=== PATIENT | female | born 1980 | race Caucasian/White ===

== ENCOUNTER 2025-06-07 00:17 | Emergency (ER) | payer SELFPAY ==
[~2025-06-07] VITALS: Ht 167.6 cm; Wt 125.0 kg
[2025-06-07 02:28] LABS: CREATININE 0.79 MG/DL (0.40-0.90); MEAN PLATELET VOLUME 6.9 FL (7.4-10.4); RED CELL DISTRIBUTION WIDTH 13.5 % (11.5-14.5); TOTAL CARBON DIOXIDE 27.7 MMOL/L (24-32); eCRCL 83 ML/MIN; eGFR 78 ML/MIN
[2025-06-07 02:38] LABS: URINE HCG NEGATIVE (NEG)
[2025-06-07 02:43] LABS: LEUKOCYTE ESTERASE ,URINE SMALL (Neg); NITRITES, URINE NEGATIVE (Neg); OCCULT BLOOD,URINE LARGE (Neg)
[2025-06-07 02:53] LABS: UA COLLECTION TYPE CLN CATCH MIDSTREAM
[2025-06-07 02:55] LABS: MUCUS STRANDS FEW /LPF (Neg); SQUAMOUS EPITHELIAL CELL,UR MODERATE /LPF (FEW)
--- NOTE | 2025-06-07 04:27 | Physician Documentation ---
History of Present Illness Chief Complaint: Flank Pain Stated Complaint: ABD PAIN Time Seen by MD: 04:25 OK to notify your PCP?: Yes Source: patient, family, RN/MD, RN notes reviewed, old records Mode of Arrival: POV Exam Limitations: no limitations HPI This pleasant 45-year-old female comes in with four days of urinary complaints mostly frequency pain feels like contractions at one point in time her urine was orange but that is seems to have improved. Patient has had some fevers and chills partner states she felt very hot. The patient vomited earlier has been feeling well. Denies any CVA tenderness. She is rocking uncomfortable but otherwise doing relatively well Medication Reconciliation Allergies: Coded Allergies: No Known Allergies (Unverified , 06/07/25) Scheduled Cephalexin*Monohydrate* (Keflex*), 1 TAB PO BID Phenazopyridine Hcl (Pyridium tablet), 1 TAB PO Q8H Past Medical History Past Medical History: Hypertension, UTI Past Surgical History: other (Kidney ureter surgery) Smoking Status: Current every day smoker Alcohol Use: Occasionally Drug Use: none Review of Systems All Other Systems at this time: Reviewed and Negative Physical Exam Vital Signs: RN Vital Signs have been reviewed: Yes, Temperature: 99.2, Source: Oral, Heart Rate: 108, Respiratory Rate: 16, BP: 179/104, Pulse Oximetry: 98, Weight: 125.000 Physical Exam General: The patient is well developed, well nourished, nontoxic appearing and is in mild acute distress. Uncomfortable appearing Skin: [place], warm and dry with no rashes. HEENT: Head was normocephalic and atraumatic. Eyes - pupils equal, round, reactive to light and accommodation. Extraocular movements were intact. Conjunctivae were nonicteric. l. The mouth and oropharynx were clear with moist mucous membranes. There were no pharyngeal exudates or erythema. Neck: Supple and nontender. There was no jugular venous distention, lymphadenopathy, thyromegaly or masses. Chest: Clear to auscultation bilaterally without wheezes, rales or rhonchi. No accessory muscle use. No dullness to percussion. Heart: Rate regular rapid and rhythmic. S1, S2. No murmurs. Palpation of the chest wall was normal. No rubs or thrills. Abdomen: Soft, nontender and nondistended. Positive bowel sounds. No guarding or rebound. No hepatosplenomegaly or palpable masses. No CVA tenderness Extremities: No cyanosis, clubbing or edema. The patient moves all extremities. Pulses were equal and symmetric. Neurologic: Motor sensory grossly intact Psychologic: The patient was oriented to person, place and time. The patient demonstrated appropriate judgement and insight. Progress Results/Orders Reviewed/noted all lab results: Yes Results/Orders Orders - MICHELLE GAVIRIA MD Cult Urine + [address] [address] (06/07/25 02:54) Completed Orders - MICHELLE GAVIRIA MD Hcg, Ur Ql (06/07/25 01:44) Cbc/Diff (06/07/25 01:44) BMP (06/07/25 01:44) Lipase (06/07/25 01:44) CMP (06/07/25 01:44) Ua W/Microscopic, Cult If Ind (06/07/25 02:10) Vital Signs 06/07/25 06/07/25 06/07/25 00:30 01:46 01:48 Temp 99.2 Pulse 102 108 Resp 16 16 16 B/P (MAP) 174/93 179/104 (129) Pulse Ox 99 98 Laboratory Tests Test 06/07/25 01:50 06/07/25 02:10 White Blood Count 15.5 H Red Blood Count 4.55 Hemoglobin 13.3 Hematocrit 39.1 Mean Corpuscular Volume 85.9 Mean Corpuscular Hemoglobin 29.3 Mean Corpuscular Hemoglobin Concent 34.1 Red Cell Distribution Width 13.5 Platelet Count 381 Mean Platelet Volume 6.9 L Neutrophils (%) (Auto) 88.5 H Lymphocytes (%) (Auto) 8.0 L Monocytes (%) (Auto) 3.2 Eosinophils (%) (Auto) 0.2 Basophils (%) (Auto) 0.1 Neutrophils # (Auto) 13.7 H Lymphocytes # (Auto) 1.2 Monocytes # (Auto) 0.5 Eosinophils # (Auto) 0.0 Basophils # (Auto) 0.0 CBC Comment Sodium Level 138 Potassium Level 3.9 Chloride Level 102 Carbon Dioxide Level 27.7 Anion Gap 8 Blood Urea Nitrogen 11 Creatinine 0.79 Estimated GFR/1.73 m2 78 BUN/Creatinine Ratio 13.9 Glucose Level 139 H Calcium Level 8.5 Total Bilirubin 0.6 Aspartate Amino Transf (AST/SGOT) 17 Alanine Aminotransferase (ALT/SGPT) 28 Alkaline Phosphatase 86 Total Protein 7.5 Albumin 3.6 Globulin 3.9 Albumin/Globulin Ratio 0.9 L Lipase 18 Chemistry Comments Urine Specimen Description Cln catch midstream Urine Color Yellow Urine Clarity Clear Urine pH 6.0 Urine Specific [place] 1.020 Urine Protein Trace Urine Glucose (UA) Negative Urine Ketones Trace H Urine Occult Blood Large H Urine Nitrite Negative Urine Bilirubin Negative Urine Urobilinogen 0.2 Urine Leukocyte Esterase Small H Urine RBC 3-10 Urine WBC 10-20 H Urine Squamous Epithelial Cells Moderate Urine Bacteria 1+ Urine Mucus Few Urine Culture Indicated Indicated Volume Urine Centrifuged 10 ml Urine HCG, Qualitative Negative Urine Comment Microbiology Date/Time Source Procedure Growth Status 06/07/25 02:54 Urine Clean Catch Midstream Urine Culture - Preliminary Culture received. Resulted Re-Evaluation Re-Evaluation : Re-Evaluation: Improved, Unchanged Progress Patient was seen and examined. Patient is given reassurance. Patient looks uncomfortable. She has no CVA tenderness a low-grade fever with tachycardia as well as positive urine infection. Patient has had prior urological surgery so she is a bit at risk for complications she for that reason received IV antibiotics 2 g Rocephin and will be prescribed Keflex. The patient also be given Pyridium on the outpatient basis. Her laboratory work was consistent with infection WBC 15.5 with 88 neutrophils no anemia chemistries within normal limits LFTs within normal limits. Urinalysis did show some trace ketones large blood leukocyte esterase was small RBCs 3-10 WBCs 10-20 with some moderate squamous epithelial cells might be a contaminant but she is presenting with urinary complaints as well as low-grade fever and elevated white count. Bacteria is 1+. Patient also received pain medications prior to discharge. Continuous electronic device monitor interpretation shows normal sinus rhythm heart rate 90s, no ectopy, normal, my interpretation. Pulse oximetry monitor interpretation shows normal oxygenation 95% room air, normal, my interpretation. Medical Decision Making Additional information obtaine: old records Findings UTI like symptoms. Sepsis, pyelonephritis, were all considered Differential Dx:Considerations: PID, Urinary obstruction, Urinary tract infection, Urolithiasis, Other Departure Disposition: HOME / SELF CARE / HOMELESS Impression: Primary Impression: Acute urinary tract infection Condition: Stable Discharge Instructions: Pyelonephritis, Adult Referrals: NO PRIMARY CARE PROVIDER (PCP) Prescriptions Phenazopyridine Hcl (Pyridium tablet) 100 Mg Tablet 1 TAB PO Q8H for urinary discomfort for 3 Days, #9 TAB 0 Refills Prov: MICHELLE GAVIRIA MD 06/07/25 Cephalexin*Monohydrate* (Keflex*) 250 Mg Capsule 1 TAB PO BID for 7 Days, #14 TAB Prov: MICHELLE GAVIRIA MD 06/07/25 Education Educated: Patient Educated regarding: diagnosis, need for follow up Signature Scribe Signature: x Attestation: The note accurately reflects work and decisions made by me.Michelle Gaviria MD 06/07/25 04:37 MICHELLE GAVIRIA MD Jun 07, 2025 04:27
[2025-06-07] MEDS ORDERED: CEPH250T PO (04:39)
[2025-06-07] MEDS ORDERED: PHEN-786 PO (04:39)
[2025-06-07] MEDS: normal saline 1000ML IV soln IVB ONE (04:47)
[2025-06-07] MEDS: CefTRIAXone 2gm/D5W 50ml BAG 50 ML IV ONE (04:49)
[2025-06-07] MEDS ORDERED: morphine 4 MG/ML inj SYRINge IV PRN (04:50)
[2025-06-07] MEDS: phenazopyridine 100mg tablet PO ONE (04:50)
[2025-06-07] MEDS: morphine 4 MG/ML inj SYRINge IV PRN (04:52)
[2025-06-07] MEDS: ondansetron/PF 4mg/2ml inj IV ONE (04:52)
[2025-06-07] MEDS: diazepam inj 5 MG/ML inj. IV ONE (05:54)
[2025-06-07] MEDS: morphine 4 MG/ML inj SYRINge IV ONE (05:55)
[2025-06-07 06:03] VITALS: BP 192/89; PULSE 96; RESP 16; TEMP 99.2; O2SAT 97
[2025-06-08] MEDS ORDERED: LOSA1TAB39 PO (08:30)
== END 2025-06-07 06:07 | disposition home or self-care (01) ==
LOC: ER 00:19
DX: N39.0 Urinary tract infection, site not specified (principal); I10 Essential (primary) hypertension; F17.200 Nicotine dependence, unspecified, uncomplicated
CPT/HCPCS: 36415; 80053; 81001; 81025; 83605; 83690; 84145; 85025; 87040; 87088; 96365; 96375; 96376; 99284; J0696; J2270; J2405; J3360; J7030

== ENCOUNTER 2025-06-08 02:51 | Inpatient (IN) | payer SELFPAY ==
[~2025-06-08] VITALS: Ht 167.6 cm; Wt 126.8 kg
[~2025-06-08 02:51] MED LIST: CEPH250T PO; PHEN-786 PO
[2025-06-08 04:18] LABS: MEAN PLATELET VOLUME 6.7 FL (7.4-10.4); RED CELL DISTRIBUTION WIDTH 13.3 % (11.5-14.5)
[2025-06-08 04:23] LABS: LEUKOCYTE ESTERASE ,URINE SMALL (Neg); OCCULT BLOOD,URINE SMALL (Neg)
[2025-06-08 04:26] LABS: CREATININE 0.81 MG/DL (0.40-0.90); TOTAL CARBON DIOXIDE 25.8 MMOL/L (24-32); eCRCL 81 ML/MIN; eGFR 76 ML/MIN
[2025-06-08 04:31] LABS: UA COLLECTION TYPE NON-SPECIFIED
[2025-06-08 04:32] LABS: NITRITES, URINE NEGATIVE (Neg)
[2025-06-08 04:33] LABS: SQUAMOUS EPITHELIAL CELL,UR FEW /LPF (FEW)
--- NOTE | 2025-06-08 04:38 | RADIOLOGY REPORT ---
CHEST RADIOGRAPH Indication: POSSIBLE SEPSIS Technique: Single frontal view of the chest was obtained Comparison: None IMPRESSION: Examination is suboptimal due to penetration. The heart appears normal in size. The right lung appears clear. Mild pulmonary vascular congestion. No pneumothorax. Possible obscuration of the left hemidiaphragm which may be related to superimposed soft tissue however underlying airspace opacity or effu daniel is not excluded. Consider 2-view of the chest if patient is clinically able.
[2025-06-08] MEDS ORDERED: iohexol 300mg/ml 100ml inj. ONE (04:55)
--- NOTE | 2025-06-08 05:39 | RADIOLOGY REPORT ---
Exam: CT CT ABDOMEN PELVIS W/ IV CONTRAST History: ABD PAIN Comparison Study: None Contrast: 100 cc Omnipaque 300 TECHNIQUE: CT imaging of the abdomen and pelvis was obtained following the administration of intravenous contrast. Coronal and sagittal reformatted images were reviewed. All CT scans at this medical facility are performed using dose modulation techniques as appropriate to a performed exam including the following: Automated exposure control was utilized; adjustment of the MA and/or KV according to patient size; and use of iterative reconstruction technique. Radiation Dose Information: CT Dose: CTDI volume is 37 mGy. Dose-length product is 2002 mGy*cm FINDINGS: Imaged portions of the lung bases demonstrate bibasilar atelectasis. Liver, gallbladder, pancreas, spleen, and adrenal glands appear unremarkable. The right kidney is lobulated with cortical defects. No evidence of hydronephrosis. Kidneys enhance symmetrically. There is no evidence of bowel obstruction. There are multiple loops of distal ileum with mild wall thickening, and mucosal hyperenhancement. Loops appear fluid-filled. There is adjacent free fluid. Prominent retroperitoneal lymph nodes measuring up to 0.9 cm. Small amount of free pelvic fluid. Enhancing probable fibroid in the uterine fundus measuring 1.9 cm. IUD within the endometrial cavity. Left ovarian cyst. No evidence of perforation or discrete abscess. No suspicious osseous lesion. IMPRESSION: 1. Abnormal appearance of ileal bowel loops favor infectious or inflammatory enteritis with adjacent free fluid and likely reactive retroperitoneal adenopathy. No evidence of perforation or abscess.
--- NOTE | 2025-06-08 06:12 | Physician Documentation ---
History of Present Illness Chief Complaint: Urinary Symptoms Stated Complaint: ABD PAIN Time Seen by MD: 04:48 OK to notify your PCP?: Yes Source: patient, RN/MD, RN notes reviewed, old records Mode of Arrival: POV Exam Limitations: no limitations HPI This patient was seen yesterday diagnosed with a UTI was having significant pain requiring multiple doses of pain medications. Patient opted not to have a CAT scan. Seemed like an uncomplicated UTI except significant amount of pain. She did vomit yesterday but was able to keep her food down she did have some right flank pain that has some concern for possible kidney stones. He has been taking her anti-inflammatories and antibiotics she was given Keflex and Pyridium after receiving some Rocephin. She has a white count of 15.5 and 88 neutrophils patient now returns to the ER complaining of continued abdominal pain but a bit more severe. She denies any vomiting she denies diarrhea and her pain seems to be localizing more to the right Medication Reconciliation Allergies: Coded Allergies: No Known Allergies (Unverified , 06/07/25) Scheduled Cephalexin*Monohydrate* (Keflex*), 1 TAB PO BID Phenazopyridine Hcl (Pyridium tablet), 1 TAB PO Q8H Past Medical History Past Medical History: Hypertension, UTI Past Surgical History: other Smoking Status: Former smoker Alcohol Use: Occasionally Drug Use: none Review of Systems All Other Systems at this time: Reviewed and Negative Physical Exam Vital Signs: RN Vital Signs have been reviewed: Yes, Temperature: 100.2, Source: Temporal, Heart Rate: 93, Respiratory Rate: 18, BP: 125/64, Pulse Oximetry: 97, Weight: 126.800 Oxygen Flow Rate: 2.0 Physical Exam General: The patient is well developed, well nourished, uncomfortable appearing and is in mild acute distress. Walking slowly Skin: [place], warm and dry with no rashes. HEENT: Head was normocephalic and atraumatic. Eyes - pupils equal, round, reactive to light and accommodation. Extraocular movements were intact. Conjunctivae were nonicteric. Ears - bilateral tympanic membranes were normal. The mouth and oropharynx were clear with moist mucous membranes. There were no pharyngeal exudates or erythema. Neck: Supple and nontender. There was no jugular venous distention, lymphadenopathy, thyromegaly or masses. Chest: Clear to auscultation bilaterally without wheezes, rales or rhonchi. No accessory muscle use. No dullness to percussion. Heart: Rate regular and rhythmic. S1, S2. No murmurs. Palpation of the chest wall was normal. No rubs or thrills. Abdomen: Right lower quadrant is tender and nondistended. Positive bowel sounds. No guarding or rebound. No hepatosplenomegaly or palpable masses. Extremities: No cyanosis, clubbing or edema. The patient moves all extremities. Pulses were equal and symmetric. Neurologic: Motor sensory grossly intact Psychologic: The patient was oriented to person, place and time. The patient demonstrated appropriate judgement and insight. Progress Progress Note 7:[address]Behl CULP for admission Results/Orders Reviewed/noted all lab results: Yes Results/Orders Orders - ONEIL DELEON MD Culture Blood (06/08/25 03:27) Chest,Single View (06/08/25 03:45) Monitor (06/08/25 03:27) Oxygen (06/08/25 03:27) Saline Lock (06/08/25 03:27) Cult Urine + [place] Ct (06/08/25 04:32) Ct Abdomen Pelvis (06/08/25 05:15) Completed Orders - ONEIL DELEON MD Cbc/Diff (06/08/25 03:27) Chest,Single View (06/08/25 03:45) Procalcitonin (06/08/25 03:27) BMP (06/08/25 03:27) Ua W/Microscopic, Cult If Ind (06/08/25 03:40) Ct Abdomen Pelvis (06/08/25 05:15) Hydromorphone 1 Mg/Ml/Pf (Dilaudid Inj.) (06/08/25 04:50) Hydromorphone 1 Mg/Ml/Pf (Dilaudid Inj.) (06/08/25 04:50) Iohexol 300mg/Ml 100ml Inj. (Omnipaque-3 (06/08/25 04:55) Hydromorphone 1 Mg/Ml/Pf (Dilaudid Inj.) (06/08/25 05:50) Medications Received in ER Medications (Trade) Dose Ordered Sig/Katerina Route PRN Reason Start Time Stop Time Status Last Admin Dose Admin (Dilaudid inj.) 1 mg ONCE ONCE IV 06/08/25 04:50 06/08/25 04:54 DC 06/08/25 04:56 1 MG (Dilaudid inj.) 1 mg ONCE ONCE IV 06/08/25 05:50 06/08/25 05:51 DC 06/08/25 05:54 1 MG Vital Signs 06/08/25 06/08/25 06/08/25 06/08/25 03:15 04:30 04:56 05:00 Temp 100.2 Pulse 106 84 103 Resp 20 18 16 B/P (MAP) 142/79 131/64 (86) 152/67 (95) Pulse Ox 93 98 99 O2 Flow Rate 0 06/08/25 06/08/25 06/08/25 06/08/25 05:45 05:54 05:57 06:03 Pulse 93 Resp 16 18 12 24 B/P (MAP) 125/64 (84) Pulse Ox 98 96 O2 Flow Rate 2.0 06/08/25 06:05 Resp 18 Pulse Ox 97 O2 Flow Rate 2.0 Laboratory Tests Test 06/08/25 03:40 06/08/25 03:55 Urine Specimen Description Non-specified Urine Color Yellow Urine Clarity Clear Urine pH 6.0 Urine Specific [place] <=1.005 Urine Protein Negative Urine Glucose (UA) Negative Urine Ketones Negative Urine Occult Blood Small Urine Nitrite Negative Urine Bilirubin Negative Urine Urobilinogen 0.2 Urine Leukocyte Esterase Small H Urine RBC 0-2 Urine WBC 0-4 Urine Squamous Epithelial Cells Few Urine Bacteria Few Urine Culture Indicated Indicated Volume Urine Centrifuged 10 ml Urine Comment White Blood Count 16.8 H Red Blood Count 4.20 Hemoglobin 12.6 Hematocrit 36.0 Mean Corpuscular Volume 85.8 Mean Corpuscular Hemoglobin 30.0 Mean Corpuscular Hemoglobin Concent 34.9 Red Cell Distribution Width 13.3 Platelet Count 378 Mean Platelet Volume 6.7 L Neutrophils (%) (Auto) 87.0 H Lymphocytes (%) (Auto) 7.2 L Monocytes (%) (Auto) 5.3 Eosinophils (%) (Auto) 0.4 Basophils (%) (Auto) 0.1 Neutrophils # (Auto) 14.6 H Lymphocytes # (Auto) 1.2 Monocytes # (Auto) 0.9 Eosinophils # (Auto) 0.1 Basophils # (Auto) 0.0 CBC Comment Sodium Level 138 Potassium Level 3.1 L Chloride Level 104 Carbon Dioxide Level 25.8 Anion Gap 8 Blood Urea Nitrogen 7 Creatinine 0.81 Estimated GFR/1.73 m2 76 BUN/Creatinine Ratio 8.6 L Glucose Level 120 H Calcium Level 8.3 L Albumin 3.2 L Procalcitonin 0.70 H Chemistry Comments Microbiology Date/Time Source Procedure Growth Status 06/08/25 04:32 Urine Nonspecified Urine Culture - Preliminary Culture received. Resulted 06/08/25 03:55 Blood A/C Right Blood Culture - Preliminary NEGATIVE (LESS THAN 24 HOURS) Resulted Re-Evaluation Re-Evaluation : Re-Evaluation: Unchanged Progress Patient was seen and examined. Patient was given reassurance. Patient received additional pain medications. Patient received Dilaudid x2. Patient's laboratory work once again shows a leukocytosis of 16.8 slightly higher from the day before and left shift of 87. Chemistry shows procalcitonin elevated at 0.7. Lactic acid was canceled for unknown reasons. The patient's potassium is 3.1 and will be supplemented. Magnesium was also given as well. Patient's urinalysis looks a bit better with small leukocyte esterase RBCs 0-2 WBCs 0-4 few squamous epithelial cells and urine bacteria again cultures indicated. However cat scan was now obtain this time and shows small amount of free pelvic fluid fluid filled loops of bowel without evidence of obstruction however inflammatory enteritis was seen. Patient received Zosyn and then was admitted to the hospitalist service for further workup and care. Continuous planimeter operator interpretation shows sinus tachycardia heart rate 100s, abnormal, my interpretation. Pulse oximetry monitor interpretation shows low oxygenation at 96% on 2 L, abnormal for this patient, my interpretation. EKG/XRAY/CT/US/VASC/MRI Chest X-Ray : Additional Comments CHEST RADIOGRAPH Indication: POSSIBLE SEPSIS Technique: Single frontal view of the chest was obtained Comparison: None IMPRESSION: Examination is suboptimal due to penetration. The heart appears normal in size. The right lung appears clear. Mild pulmonary vascular congestion. No pneumothorax. Possible obscuration of the left hemidiaphragm which may be related to superimposed soft tissue however underlying airspace opacity or effusion is not excluded. Consider 2-view of the chest if patient is clinically able. Electronically Signed by:ISABELLA CAGLE MD Date & Time: 06/08/25436 Dictated by: ISABELLA CAGLE MD Dictation date and time: 06/08/25436 Primary Care Provider: NO PRIMARY CARE PROVIDER CT : Impression Exam: CT CT ABDOMEN PELVIS W/ IV CONTRAST History: ABD PAIN Comparison Study: None Contrast: 100 cc Omnipaque 300 TECHNIQUE: CT imaging of the abdomen and pelvis was obtained following the administration of intravenous contrast. Coronal and sagittal reformatted images were reviewed. All CT scans at this medical facility are performed using dose modulation techniques as appropriate to a performed exam including the following: Automated exposure control was utilized; adjustment of the MA and/or KV according to patient size; and use of iterative reconstruction technique. Radiation Dose Information: CT Dose: CTDI volume is 37 mGy. Dose-length product is 2002 mGy*cm FINDINGS: Imaged portions of the lung bases demonstrate bibasilar atelectasis. Liver, gallbladder, pancreas, spleen, and adrenal glands appear unremarkable. The right kidney is lobulated with cortical defects. No evidence of hydrone phrosis. Kidneys enhance symmetrically. There is no evidence of bowel obstruction. There are multiple loops of distal ileum with mild wall thickening, and mucosal hyperenhancement. Loops appear fluid-filled. There is adjacent free fluid. Prominent retroperitoneal lymph nodes measuring up to 0.9 cm. Small amount of free pelvic fluid. Enhancing probable fibroid in the uterine fundus measuring 1.9 cm. IUD within the endometrial cavity. Left ovarian cyst. No evidence of perforation or discrete abscess. No suspicious osseous lesion. IMPRESSION: 1. Abnormal appearance of ileal bowel loops favor infectious or inflammatory enteritis with adjacent free fluid and likely reactive retroperitoneal adenopathy. No evidence of perforation or abscess. Medical Decision Making Additional information obtaine: old records Findings Patient was found to have leukocytosis cat scan shows free fluid and enteritis antibiotics were admitted she has a low-grade fever we will be admitted to the hospital service failing outpatient antibiotics although her outpatient antibiotics was Keflex for UTI. Differential Dx:Considerations: Aortic dissection, Appendicitis, Bowel obstruction, Cholangitis, Cholelithasis, Constipation, Diverticular disease, Esophageal rupture, Esophagitis, Gastritis/PUD, Gastroenteritis, GI hemorrhage, Hernia, Hepatitis, Inflammatory BD, Ischemic bowel, Ovarian cyst/torsion, Pancreatitis, PID, Urinary obstruction, Urolithiasis, N/A Departure Disposition: ADMITTED INPATIENT Admitted to Inpatient Unit: yes, to hospitalist Admission Level of Care: Med/Surg with Tele Impression: Primary Impression: Colitis Additional Impressions: Abdominal pain Qualified Codes: R10.31 - Right lower quadrant pain Hypokalemia Condition: Guarded Referrals: NO PRIMARY CARE PROVIDER (PCP) Education Educated: Patient Educated regarding: diagnosis, prognosis, need for follow up Signature Scribe Signature: The note accurately reflects work and decisions made by me.Oneil Deleon MD 06/08/25 06:34 Attestation: The note accurately reflects work and decisions made by me.Oneil Deleon MD 06/08/25 06:11 ONEIL DELEON MD Jun 08, 2025 06:12
[2025-06-08] MEDS: potassium Cl 20 mEq SR tablet PO ONE (06:52)
[2025-06-08] MEDS: potassium CL 10mEq/100ml bag 100 ML IV ONE (06:57)
[2025-06-08] MEDS: magnesium sulf-water 2g/50mL 50 ML IV ONE (06:58)
[2025-06-08] MEDS: piperacillin/tazo 4.5gm/100ml 100 ML IV STA (07:27)
[2025-06-08] MEDS ORDERED: LOSA1TAB39 PO (08:30)
[2025-06-08] MEDS: normal saline 1000ml 1,000 ML IV ONE (08:53)
--- NOTE | 2025-06-08 09:11 | HISTORY AND PHYSICAL ---
History & Physical Providers to ~ History of Present Illness Reason for Admit\Complaint: Abdominal pain History of Present Illness Patient is a 45 years old female who was seen last night in the emergency room for evaluation of abdominal pain patient was diagnosed with UTI and discharged home on p.o. antibiotics. Patient returns with worsening abdominal pain. She denies having any fever chills nausea vomiting dysuria frequency urgency hematuria melena or bright red blood per rectum. Has been more so on the right side. On evaluation in the ER, patient is noted to have a white count of 16.[address] of the abdomen shows abnormal appearance of the ileal bowel loops which favor infectious or inflammatory enteritis. Patient has been admitted for further treatment. Allergies: Coded Allergies: No Known Allergies (Unverified , 06/07/25) Home Medications Home Medications Active Reported Losartan-Hctz 100-25 Mg Tab (Losartan/Hydrochlorothiazide) 100 Mg-25 Mg Tablet 1 Tab PO DAILY Past Medical History Past Medical History Hypertension Past Surgical History Surgical History Comment None Family History Family History: Family history was reviewed; no changes noted. Past Social History Social History Comment Former smoker, occasionally drinks, does not do any drugs. Health Maintenance Health Maintenance Current on her immunizations ROS ROS All other systems are reviewed and are negative except as mentioned in HPI Exam Vitals: Vital Signs Date Time Temp Pulse Resp B/P (MAP) Pulse Ox O2 Delivery O2 Flow Rate FiO2 06/08/25 08:31 100.1 99 22 129/57 (81) 94 2.0 06/08/25 08:04 Nasal Cannula* 28 General: Awake alert cooperative in no acute distress HEENT: Normocephalic atraumatic pupils round reactive to light and accommodation, extraocular movements intact, sclera anicteric, conjunctiva pinkish, moist oral mucosa, no rash or ulcers. Neck: Supple, no JVD, trachea midline, no lymphadenopathy. Chest: Clear to auscultation, no wheezes crackles or rhonchi. Cardiovascular: Regular rate rhythm, no murmur gallop or rub. Abdomen: Soft tender on the right side of the abdomen , no organomegaly. Extremities: No cyanosis clubbing or edema. Central Nervous System: Nonfocal. Moves all four extremities Musculoskeletal: No joint swelling or deformities noted. Skin: No rash or ulcers noted. Diagnostic Data Last Recorded Lab Results: 06/08/25 0355 06/08/25 0355 Additional Plan 45 years old female presented to the ER for evaluation of abdominal pain. # abdominal pain: Patient has been evaluated with a CT scan of the abdomen and pelvis which suggestive of infectious / inflammatory enteritis. We will start patient on IV Rocephin and Flagyl # UTI: IV antibiotics as noted above #hypertension: IV hydralazine p.r.n. # hypokalemia: Replace per protocol # Morbid obesity : Has a BMI of 45.1 . Defer to outpatient follow up with PCP for treatment options. # code status: Patient wishes to be a full code Date of Service: Jun 09, 2025 Billing Provider: MOUNA DAMIAN MD Common Visit Codes: [id number] INP/OBS CARE (HIGH) MOUNA DAMIAN MD Jun 08, 2025 09:11
[2025-06-08] MEDS ORDERED: magnesium sulf-water 2g/50mL 50 ML IV PRN (09:15)
[2025-06-08] MEDS ORDERED: magnesium sulf-water 4G/100mL 100 ML IV PRN (09:15)
[2025-06-08] MEDS ORDERED: potassium Cl 20 mEq SR tablet PO PRN (09:15)
[2025-06-08] MEDS ORDERED: magnesium Cl slow-release 64mg tablet PO PRN (09:15)
[2025-06-08] MEDS ORDERED: potassium Cl 40MEQ/1/2NS 520ml 520 ML IV PRN (09:15)
[2025-06-08] MEDS ORDERED: HYDROmorphone inj. 0.5 MG/0.5 ML DISP.SYRIN IV SCH (10:22)
[2025-06-08] MEDS: HYDROmorphone inj. 0.5 MG/0.5 ML DISP.SYRIN IV PRN (10:54)
[2025-06-08] MEDS: normal saline 1000ml 1,000 ML IV SCH (10:57)
[2025-06-08] MEDS: HYDROmorphone inj. 0.5 MG/0.5 ML DISP.SYRIN IV ONE (11:41)
[2025-06-08] MEDS: HYDROcodone/acetaminophen 5mg/325mg tablet PO PRN (13:39)
[2025-06-08] MEDS: ondansetron/PF 4mg/2ml inj IV PRN (17:58)
[2025-06-08 19:25] VITALS: BP 138/61; PULSE 101; RESP 16; TEMP 98.9; O2SAT 95
[2025-06-08] MEDS: K and/or MAG REPLACEMENT MC SCH (20:00)
[2025-06-08] MEDS: CefTRIAXone/D5W-Rocephin 1gm 50 ML IV SCH (20:02)
[2025-06-08] MEDS: metroNIDAZOLE-Flagyl 500mg/NS 100 ML IV SCH (20:50)
[2025-06-08 22:00] VITALS: BP 140/79; PULSE 94; RESP 18; TEMP 98; O2SAT 94
[2025-06-08] MEDS: potassium Cl 20 mEq SR tablet PO PRN (22:54)
[2025-06-09 06:00] VITALS: BP 151/84; PULSE 92; RESP 20; TEMP 99.2; O2SAT 97
[2025-06-09 06:15] LABS: CREATININE 0.78 MG/DL (0.40-0.90); TOTAL CARBON DIOXIDE 28.7 MMOL/L (24-32); eCRCL 84 ML/MIN; eGFR 80 ML/MIN
[2025-06-09 06:18] LABS: MEAN PLATELET VOLUME 6.8 FL (7.4-10.4); RED CELL DISTRIBUTION WIDTH 13.2 % (11.5-14.5)
[2025-06-09 08:00] VITALS: RESP 18; O2SAT 97
--- NOTE | 2025-06-09 08:25 | RADIOLOGY REPORT ---
INDICATION: abdominal pain TECHNIQUE: Multiple real-time sonographic images of the abdomen were obtained. COMPARISON: CT CT ABDOMEN PELVIS W/ IV CONTRAST on DOS: 06/08/25. FINDINGS: The liver is homogenous in echogenicity. The liver measures 19.8 cm. No intrahepatic biliary ductal dilatation is noted. The gallbladder wall measures 0.3 cm and is unremarkable. No gallstones or sludge is seen. The common duct measures 0.5 cm and is unremarkable. No pericholecystic fluid is noted. The right kidney measures 9.99 cm. No hydronephrosis. The pancreas is not well visualized due to obscuration from bowel gas. The visualized portions of the IVC and aorta are obscured. IMPRESSION: 1. Hepatomegaly. 2. No sonographic evidence of acute cholecystitis.
[2025-06-09 10:00] VITALS: BP 128/63; PULSE 83; RESP 16; TEMP 98.7; O2SAT 97
--- NOTE | 2025-06-09 10:06 | PROGRESS NOTE ---
Daily Progress Note Providers to CC ~ Antibiotic Timeout Antibiotic Ordered?: Yes Subjective ERROR Objective Vital Signs Date Time Temp Pulse Resp B/P (MAP) Pulse Ox O2 Delivery O2 Flow Rate FiO2 06/09/25 08:00 18 97 Nasal Cannula 2.0 06/09/25 06:00 99.2 92 151/84 (106) 28 Result Diagram: 06/09/25 0439 06/09/25 0439 Date of Service: Jun 09, 2025 Billing Provider: MOUNA DAMIAN MD Common Visit Codes: NOT BILLABLE MOUNA DAMIAN MD Jun 09, 2025 10:06
--- NOTE | 2025-06-09 14:07 | PROGRESS NOTE ---
Daily Progress Note Providers to CC ~ Antibiotic Timeout Antibiotic Ordered?: Yes Subjective Continues to have abdominal pain. Objective Vital Signs Date Time Temp Pulse Resp B/P (MAP) Pulse Ox O2 Delivery O2 Flow Rate FiO2 06/09/25 12:22 16 06/09/25 10:00 98.7 83 128/63 (84) 97 Nasal Cannula 2.0 06/09/25 06:00 28 Result Diagram: 06/09/2543806/09/25438 Gen. awake alert oriented asymptomatic HEENT: Normocephalic, atraumatic, extraocular movements are intact, sclera anicteric, conjunctiva pinkish, moist oral mucosa, no rash or ulcers. NECK: Supple, no JVD, trachea midline. CHEST: Clear to auscultation, no wheezes crackles or rhonchi. HEART: Regular rate rhythm, no murmur gallop or rub. ABDOMEN: Soft, tender on the right side, no organomegaly. EXTREMITIES: No cyanosis clubbing or edema. NEURO EXAM: Grossly nonfocal. MUSCULOSKELETAL : No joint swelling or deformities. SKIN: No rash or ulcers noted. Other Results Medications reviewed Problem\Assessment\Plan 45 years old female presented to the ER for evaluation of right-sided abdominal pain # abdominal pain: Patient has been evaluated with a CT scan of the abdomen and pelvis which suggestive of infectious / inflammatory enteritis. Continue IV Rocephin and Flagyl . # sepsis: Supportive care. WBC count is trending down. # UTI: IV antibiotics as noted above #hypertension: IV hydralazine p.r.n. # hypokalemia: Replace per protocol # Morbid obesity : Has a BMI of 45.1 . Defer to outpatient follow up with PCP for treatment options. # code status: Patient wishes to be a full code Date of Service: Jun 09, 2025 Billing Provider: MOUNA DAMIAN MD Common Visit Codes: [id number] INP/OBS CARE(HIGH) MOUNA DAMIAN MD Jun 09, 2025 14:07
[2025-06-09 18:00] VITALS: BP 128/58; PULSE 78; RESP 19; TEMP 98.3; O2SAT 96
[2025-06-09 22:00] VITALS: BP 132/63; PULSE 68; RESP 16; TEMP 97.2; O2SAT 96
[2025-06-10] VITALS (7 sets, daily range): BP systolic 114–145; BP diastolic 52–76; PULSE 70–78; RESP 13–20; TEMP 97–97.9; O2SAT 96–98
[2025-06-10 06:13] LABS: MEAN PLATELET VOLUME 6.8 FL (7.4-10.4); RED CELL DISTRIBUTION WIDTH 13.1 % (11.5-14.5)
[2025-06-10 06:15] LABS: CREATININE 0.68 MG/DL (0.40-0.90); TOTAL CARBON DIOXIDE 29.3 MMOL/L (24-32); eCRCL 97 ML/MIN; eGFR > 90 ML/MIN
[2025-06-10] MEDS ORDERED: iohexol 300mg/ml 100ml inj. ONE (11:20)
--- NOTE | 2025-06-10 12:55 | RADIOLOGY REPORT ---
Exam: CT CT ABDOMEN PELVIS W/ IV CONTRAST History: ABD Pain COMPARISON: CT CT ABDOMEN PELVIS W/ IV CONTRAST on DOS: 06/08/25 Technique: Multidetector spiral CT of the abdomen and pelvis was performed from lung bases to pubic symphysis. Intravenous contrast was administered during this examination. Portal venous imaging was obtained. Axial, coronal and sagittal multiplanar reformats were performed by the technologist on a separate workstation. Radiation Dose : 1. Abdomen/Pelvis: CTDIvol 34.9mGy, DLP 1901.7 mGy*cm. Findings: Lung Bases: Trace bilateral pleural effusions and passive bibasilar atelectasis. Liver: Unremarkable Gallbladder and Biliary Tree: Unremarkable Spleen: Unremarkable . Pancreas: Unremarkable Adrenal Glands: Unremarkable Kidneys: Cortical scarring in the right kidney, likely related to prior infection. Kidneys are otherwise unremarkable. Bladder: Unremarkable Bowel: The stomach, colon, and appendix are unremarkable. There are again noted multiple moderately thickened and dilated loops of small bowel. There is progression and peritoneal fat stranding in keeping with peritonitis. More well-formed fluid collections in the lower abdomen and pelvis, concerning for abscesses. For example in the left lower quadrant there is a 4.2 by 6 cm abscess. In the right lower abdomen just superior to the uterus, there is a 3 x 3.6 cm abscess. In the deep pelvis there is a 7.3 x 4.2 cm abscess. Lymphadenopathy: Unchanged prominent retroperitoneal lymph nodes measuring up to 1 cm, likely reactive. Vasculature: Abdominal aortic dimensions are normal. Pelvic Organs: IUD in satisfactory position. No adnexal masses. Musculoskeletal: No aggressive focal bony lesions, acute fractures or dislocation. IMPRESSION: Redemonstrated multiple moderately thickened and dilated loops of small bowel with progression of peritonitis and more well-formed fluid collections in the lower abdomen and pelvis, concerning for worsening enteritis and development of abscesses. No pneumoperitoneum to suggest bowel perforation; however, follow-up CT abdomen/pelvis with oral and IV contrast would be helpful for further assessment. Radiation optimization: All CT scans at this facility use at least one of these dose optimization techniques: automated exposure control mA and/or kV adjustment per patient size (includes targeted exams where dose is matched to clinical indication) or iterative reconstruction.
--- NOTE | 2025-06-10 14:25 | PROGRESS NOTE ---
Daily Progress Note Providers to CC ~ Antibiotic Timeout Antibiotic Ordered?: Yes Subjective Continues to have abdominal pain Objective Vital Signs Date Time Temp Pulse Resp B/P (MAP) Pulse Ox O2 Delivery O2 Flow Rate FiO2 06/10/25 12:12 16 06/10/25 10:00 97.3 70 133/62 (85) 96 Room Air 06/10/25 08:40 2.5 06/10/25 08:00 28 Result Diagram: 06/10/25 0523 06/10/25 0523 Gen. awake alert oriented asymptomatic HEENT: Normocephalic, atraumatic, extraocular movements are intact, sclera anicteric, conjunctiva pinkish, moist oral mucosa, no rash or ulcers. NECK: Supple, no JVD, trachea midline. CHEST: Clear to auscultation, no wheezes crackles or rhonchi. HEART: Regular rate rhythm, no murmur gallop or rub. ABDOMEN: Soft, markedly tender in all four quadrants, No BS audible EXTREMITIES: No cyanosis clubbing or edema. NEURO EXAM: Grossly nonfocal. MUSCULOSKELETAL : No joint swelling or deformities. SKIN: No rash or ulcers noted. Other Results Medications reviewed Problem\Assessment\Plan 45 years old female presented to the ER for evaluation of right-sided abdominal pain # abdominal pain: Patient has been evaluated with a CT scan of the abdomen and pelvis which suggestive of infectious / inflammatory enteritis. Continue abx, will repeat CT abdomen and pelvis # sepsis: Supportive care. WBC count is trending down. # UTI: IV antibiotics as noted above #hypertension: IV hydralazine p.r.n. # hypokalemia: Replace per protocol # Morbid obesity : Has a BMI of 45.1 . Defer to outpatient follow up with PCP for treatment options. # code status: Patient wishes to be a full code Date of Service: Jun 10, 2025 Billing Provider: MOUNA DAMIAN MD Common Visit Codes: [id number] INP/OBS CARE(HIGH) MOUNA DAMIAN MD Jun 10, 2025 14:25
[2025-06-10] MEDS: piperacillin/tazo 3.375gm/50ml 50 ML IV SCH (15:17)
--- NOTE | 2025-06-10 15:24 | PROGRESS NOTE ---
Progress Note ID Providers to CC ~ Progress Note Progress Note: pt seen and examined-needs ct with oral contrast REENA RAMOS MD Jun 10, 2025 15:24
[2025-06-10] MEDS: diatr meglu/diatrizoate 30ml oral sol.-(3 dose) bottle PO SCH (20:48)
[2025-06-11 06:00] VITALS: BP 128/65; PULSE 72; RESP 16; TEMP 99; O2SAT 97
[2025-06-11 06:01] LABS: MEAN PLATELET VOLUME 6.3 FL (7.4-10.4); RED CELL DISTRIBUTION WIDTH 13.0 % (11.5-14.5)
[2025-06-11 06:16] LABS: CREATININE 0.64 MG/DL (0.40-0.90); TOTAL CARBON DIOXIDE 27.8 MMOL/L (24-32); eCRCL 103 ML/MIN; eGFR > 90 ML/MIN
[2025-06-11 08:00] VITALS: RESP 14; O2SAT 97
[2025-06-11 10:00] VITALS: BP 151/74; PULSE 64; RESP 22; TEMP 98.3; O2SAT 98
--- NOTE | 2025-06-11 11:45 | RADIOLOGY REPORT ---
Indication: pain overnight prep Technique: CT axial images of the abdomen and pelvis are obtained with intravenous contrast. Coronal and sagittal reformats were obtained. Radiation Dose Information: CTDI volume is 35.2 mGy. Dose-length product is 2147 mGy*cm Comparison: CT CT ABDOMEN PELVIS W/ IV CONTRAST on DOS: 06/10/25, CT CT ABDOMEN PELVIS W/ IV CONTRAST on DOS: 06/08/25 FINDINGS: There are tiny bilateral pleural effusions. Bibasilar atelectasis/ consolidation. Adrenal glands, spleen and pancreas unremarkable. Gallbladder sludge. No enhancing hepatic lesion. The kidneys demonstrate no hydronephrosis. Stomach is partially distended. There is bowel wall thickening of the mid to distal small bowel most pronounced in the lower abdomen / pelvis. There is mesenteric edema and stranding.m left abdominal lower quadrant rim enhancing loculated collection measuring 6.5 by 2.7 cm. Other similar collections within the mid mesentery measuring 3.1 and 3.8 cm, axial image 93. Pelvic cul-de-sac rim enhancing collection measuring 6.1 x 5.0 cm. Retroperitoneal lymphadenopathy measuring up to 1.3 cm. Large bowel loops relatively nondistended. The enteric contrast extends to the splenic flexure of the colon. Normal appendix. Intrauterine device. Right ovarian/ adnexal lesion measuring 2.2 cm that appears cystic . No inguinal lymphadenopathy. [id number] thoracolumbar degenerative disc disease IMPRESSION: Redemonstration of Bowel wall thickening of the mid to distal small bowel loops within the lower abdomen/ pelvis with adjacent mesenteric edema and stranding which can be secondary to an enteritis / inflammatory disease, peritonitis, other infectious / inflammatory processes. Multiple rim enhancing collections as described within the lower abdomen / pelvis measuring 6.5 cm, 3.1 cm, 3.8 cm, 6.1 cm most consistent with abscesses /developing abscesses. No definitive evidence for contrast extravasation. Contrast extends to the splenic flexure of the colon. Retroperitoneal lymphadenopathy . Intrauterine device. Right ovarian/ adnexal cystic lesion measuring 2.2 cm. This can be further characterized with pelvic ultrasound. Bibasilar pulmonary atelectasis/ consolidation with tiny bilateral pleural effusions. Gallbladder sludge Other findings as described.
--- NOTE | 2025-06-11 14:16 | PROGRESS NOTE ---
Daily Progress Note Providers to CC ~ Antibiotic Timeout Antibiotic Ordered?: Yes Subjective Feels better Objective Vital Signs Date Time Temp Pulse Resp B/P (MAP) Pulse Ox O2 Delivery O2 Flow Rate FiO2 06/11/25 10:00 98.3 64 22 151/74 (99) 98 Nasal Cannula 2.0 06/10/25 08:00 28 Result Diagram: 06/11/2552406/11/25 05 Gen. awake alert oriented asymptomatic HEENT: Normocephalic, atraumatic, extraocular movements are intact, sclera anicteric, conjunctiva pinkish, moist oral mucosa, no rash or ulcers. NECK: Supple, no JVD, trachea midline. CHEST: Clear to auscultation, no wheezes crackles or rhonchi. HEART: Regular rate rhythm, no murmur gallop or rub. ABDOMEN: Soft, markedly tender in all four quadrants, Hypoactive BS EXTREMITIES: No cyanosis clubbing or edema. NEURO EXAM: Grossly nonfocal. MUSCULOSKELETAL : No joint swelling or deformities. SKIN: No rash or ulcers noted. Other Results Medications reviewed Problem\Assessment\Plan 45 years old female presented to the ER for evaluation of right-sided abdominal pain # Enteritis / Intra abdominal abscesses: Patient has been evaluated with a CT scan of the abdomen and pelvis which suggestive of infectious / inflammatory enteritis. Continue abx, Surgery consulted, await further recommendations. # sepsis: Supportive care. WBC count is trending down. # UTI: IV antibiotics as noted above #hypertension: IV hydralazine p.r.n. # hypokalemia: Replace per protocol # Morbid obesity : Has a BMI of 45.1 . Defer to outpatient follow up with PCP for treatment options. # code status: full code Date of Service: Jun 11, 2025 Billing Provider: MOUNA DAMIAN MD Common Visit Codes: [id number] INP/OBS CARE(HIGH) MOUNA DAMIAN MD Jun 11, 2025 14:16
--- NOTE | 2025-06-11 16:18 | PROGRESS NOTE ---
Progress Note ID Providers to CC ~ Progress Note Progress Note: pain improving/pelvic us pending REENA RAMOS MD Jun 11, 2025 16:18
--- NOTE | 2025-06-11 16:57 | RADIOLOGY REPORT ---
INDICATION: ovarian lesion TECHNIQUE: Multiple real-time grayscale transabdominal sonographic images along with color and duplex Doppler of the uterus and ovaries were obtained. COMPARISON: CT CT ABDOMEN PELVIS W/ IV ORAL CONTRAST on DOS: 06/11/25, CT CT ABDOMEN PELVIS W/ IV CONTRAST on DOS: 06/10/25, US ULTRASOUND OF ABDOMEN on DOS: 06/09/25, CT CT ABDOMEN PELVIS W/ IV CONTRAST on DOS: 06/08/25 FINDINGS: The uterus measures 10.4 x 4.3 x 5.5 cm. Intrauterine device in satisfactory position. Right ovary measures 3.4 x 1.2 x 1.7 cm with normal Doppler color flow Left ovary measures 7.2 x 3.4 x 4.4 cm with normal Doppler color flow Both ovaries appear cystic with multiple septations. IMPRESSION: Nonspecific cystic and septated appearance to bilateral ovaries. Differential considerations could include hemorrhagic cysts. Clinical correlation advised. Recommend repeat ultrasound in 6 weeks.
[2025-06-11 18:00] VITALS: BP 150/76; PULSE 71; RESP 14; TEMP 98.2; O2SAT 97
[2025-06-11 20:00] VITALS: RESP 14; O2SAT 97
[2025-06-11 22:00] VITALS: BP 126/69; PULSE 60; RESP 15; TEMP 97; O2SAT 96
[2025-06-12 06:16] VITALS: BP 148/76; PULSE 78; RESP 13; TEMP 97.6; O2SAT 93
[2025-06-12 06:45] LABS: CREATININE 0.57 MG/DL (0.40-0.90); MEAN PLATELET VOLUME 6.4 FL (7.4-10.4); RED CELL DISTRIBUTION WIDTH 13.3 % (11.5-14.5); TOTAL CARBON DIOXIDE 28.1 MMOL/L (24-32); eCRCL 115 ML/MIN; eGFR > 90 ML/MIN
[2025-06-12 08:00] VITALS: RESP 18; O2SAT 96
[2025-06-12] MEDS ORDERED: magnesium sulf-water 4G/100mL 100 ML IV PRN (08:50)
[2025-06-12] MEDS ORDERED: potassium Cl 40MEQ/1/2NS 520ml 520 ML IV PRN (08:50)
[2025-06-12] MEDS ORDERED: magnesium sulf-water 2g/50mL 50 ML IV PRN (08:50)
[2025-06-12] MEDS ORDERED: potassium Cl 20 mEq SR tablet PO PRN (08:50)
[2025-06-12] MEDS ORDERED: magnesium Cl slow-release 64mg tablet PO PRN (08:50)
[2025-06-12] MEDS: potassium Cl 20 mEq SR tablet PO PRN (09:32)
[2025-06-12 10:00] VITALS: BP 148/79; PULSE 79; RESP 18; TEMP 98.1; O2SAT 93
[2025-06-12] MEDS: ENSURE CLEAR - 237ml PO SCH (13:19)
--- NOTE | 2025-06-12 14:16 | PROGRESS NOTE ---
Progress Note ID Providers to CC ~ Progress Note Progress Note: pain improving/ok for dc harika/needs ca 125 REENA RAMOS MD Jun 12, 2025 14:16
--- NOTE | 2025-06-12 16:25 | PROGRESS NOTE ---
Daily Progress Note Providers to CC ~ Antibiotic Timeout Antibiotic Ordered?: Yes Subjective No new complaints. Patient reports improvement. Having loose bowel movements and wants Imodium. Objective Vital Signs Date Time Temp Pulse Resp B/P (MAP) Pulse Ox O2 Delivery O2 Flow Rate FiO2 06/12/25 15:22 14 06/12/25 10:00 98.1 79 148/79 (102) 93 Room Air 06/11/25 22:00 2.0 06/10/25 08:00 28 Result Diagram: 06/12/25 0556 06/12/25 0556 Gen. awake alert oriented asymptomatic HEENT: Normocephalic, atraumatic, extraocular movements are intact, sclera anicteric, conjunctiva pinkish, moist oral mucosa, no rash or ulcers. NECK: Supple, no JVD, trachea midline. CHEST: Clear to auscultation, no wheezes crackles or rhonchi. HEART: Regular rate rhythm, no murmur gallop or rub. ABDOMEN: Soft, tenderness improved in all quadrants accept right upper quadrant, bowel sounds audible EXTREMITIES: No cyanosis clubbing or edema. NEURO EXAM: Grossly nonfocal. MUSCULOSKELETAL : No joint swelling or deformities. SKIN: No rash or ulcers noted. Other Results Medications reviewed Problem\Assessment\Plan Medications reviewed place I do not live in the house 45 years old female presented to the ER for evaluation of right-sided abdominal pain # Enteritis / Intra abdominal abscesses: Improving , continue IV antibiotics # sepsis: Supportive care. WBC count is trending down. # UTI: IV antibiotics as noted above #hypertension: IV hydralazine p.r.n. # hypokalemia: Replace per protocol # Morbid obesity : Has a BMI of 45.1 . Defer to outpatient follow up with PCP for treatment options. # code status: full code Date of Service: Jun 12, 2025 Billing Provider: MOUNA DAMIAN MD Common Visit Codes: [id number] INP/OBS CARE(MOD) OMUNA DAMIAN MD Jun 12, 2025 16:25
[2025-06-12 18:00] VITALS: BP 163/79; PULSE 73; RESP 18; TEMP 97.6; O2SAT 96
[2025-06-12 20:00] VITALS: RESP 18; O2SAT 96
[2025-06-12 22:00] VITALS: BP 107/71; PULSE 72; RESP 15; TEMP 96.9; O2SAT 97
[2025-06-13 06:00] VITALS: BP 148/83; PULSE 81; RESP 17; TEMP 97.9; O2SAT 94; O2SAT 97
[2025-06-13 06:48] LABS: MEAN PLATELET VOLUME 6.5 FL (7.4-10.4); RED CELL DISTRIBUTION WIDTH 13.1 % (11.5-14.5)
[2025-06-13 07:00] LABS: CREATININE 0.50 MG/DL (0.40-0.90); TOTAL CARBON DIOXIDE 26.8 MMOL/L (24-32); eCRCL 132 ML/MIN; eGFR > 90 ML/MIN
[2025-06-13 08:00] VITALS: RESP 17; O2SAT 94
[2025-06-13 10:00] VITALS: BP 137/79; PULSE 72; RESP 16; TEMP 99.1; O2SAT 95
--- NOTE | 2025-06-13 15:44 | PROGRESS NOTE ---
Daily Progress Note Providers to CC ~ Antibiotic Timeout Antibiotic Ordered?: Yes Subjective Patient continues to feel better.Reports diarrhea has slowed down . Objective Vital Signs Date Time Temp Pulse Resp B/P (MAP) Pulse Ox O2 Delivery O2 Flow Rate FiO2 06/13/25 08:00 17 94 Room Air 06/13/25 07:46 81 06/13/25 06:00 97.9 148/83 (104) 06/12/25 18:00 2.0 06/10/25 08:00 28 Result Diagram: 06/13/25 0549 06/13/25 0549 Gen. awake alert oriented asymptomatic HEENT: Normocephalic, atraumatic, extraocular movements are intact, sclera anicteric, conjunctiva pinkish, moist oral mucosa, no rash or ulcers. NECK: Supple, no JVD, trachea midline. CHEST: Clear to auscultation, no wheezes crackles or rhonchi. HEART: Regular rate rhythm, no murmur gallop or rub. ABDOMEN: Soft, nontender, no organomegaly EXTREMITIES: No cyanosis clubbing or edema. NEURO EXAM: Grossly nonfocal. MUSCULOSKELETAL : No joint swelling or deformities. SKIN: No rash or ulcers noted. Other Results Medications reviewed Problem\Assessment\Plan 45 years old female presented to the ER for evaluation of right-sided abdominal pain # Enteritis / Intra abdominal abscesses: Improving , Continue IV antibiotics. Consult GI # Sepsis: Improving , Supportive care. WBC count is trending down. # UTI: IV antibiotics as noted above. # Hypertension: IV hydralazine p.r.n. # Hypokalemia: Replaced per protocol # Morbid obesity : Has a BMI of 45.1 . Defer to outpatient follow up with PCP for treatment options. # Code status: full code # Disposition; Home when medically stable. Date of Service: Jun 13, 2025 Billing Provider: DIDIER DE JESUS MD Common Visit Codes: [id number] INP/OBS CARE(HIGH) MOUNA DAMIAN MD Jun 13, 2025 15:44
--- NOTE | 2025-06-13 17:13 | RADIOLOGY REPORT ---
CLINICAL HISTORY: abscess above uterus, ovaries, checking for ca TECHNIQUE: CT of the abdomen and pelvis was performed without intravenous contrast. This exam was performed according to our departmental dose optimization program. Up-to-date CT equipment and radiation dose reduction techniques are utilized as appropriate. WID: COMPARISON: US ULTRASOUND PELVIS W/ORWO DPLX on DOS: 06/11/25, CT CT ABDOMEN PELVIS W/ IV ORAL CONTRAST on DOS: 06/11/25, CT CT ABDOMEN PELVIS W/ IV CONTRAST on DOS: 06/10/25, US ULTRASOUND OF ABDOMEN on DOS: 06/09/25, CT CT ABDOMEN PELVIS W/ IV CONTRAST on DOS: 06/08/25 FINDINGS: Trace right and small left pleural effusion. The liver, gallbladder, spleen, pancreas, adrenal glands, kidneys, and urinary bladder within normal limits. The stomach, small bowel, and colon are within normal limits. The appendix is unremarkable. Intrauterine device is noted and appears in good position. There is a 7.8 by 4.9 cm cul-de-sac fluid collection.Insinuating loculated thin fluid collection anterior and superior to the uterus measuring 4.6 x 3 , decreased in size when compared to prior. There is trace interloop adjacent fluid. There is generalized mesenteric haziness and peritoneal thickening. The bones are unremarkable. Subcentimeter retroperitoneal lymph nodes, Likely reactive. IMPRESSION: Limited evaluation in the setting of lack of intravenous contrast. Slightly decreased size of the insinuating thin loculated fluid collection anterior and superior to the uterus when compared to prior from 06/11 with the largest pocket measuring 4.6 x 3 cm Stable size of the cul-de-sac fluid collection measuring 7.9 x 4.9 cm, likely abscess. Generalized mesenteric edema and mild peritonitis. Multiple subcentimeter retroperitoneal lymph nodes which may be reactive. Intrauterine device in good position within the uterus. The adnexa are not well assessed due to lack of intravenous contrast. Small left and trace right pleural effusions.
[2025-06-13 18:00] VITALS: BP 141/80; PULSE 67; RESP 18; TEMP 97.5; O2SAT 95
[2025-06-13 20:00] VITALS: RESP 18; O2SAT 95
[2025-06-13 22:00] VITALS: BP 132/69; PULSE 68; RESP 18; TEMP 97.5; O2SAT 97
[2025-06-14 06:00] VITALS: BP 133/58; PULSE 70; RESP 18; TEMP 97.7; O2SAT 96
[2025-06-14 08:00] VITALS: RESP 18; O2SAT 96
[2025-06-14 10:00] VITALS: BP 146/62; PULSE 66; RESP 18; TEMP 98.1; O2SAT 96
--- NOTE | 2025-06-14 12:51 | DISCHARGE SUMMARY ---
Discharge Summary Providers to CC ~ Discharge Summary Admission Diagnosis: Abdominal pain Hospital Course DATE OF ADMISSION: DATE OF DISCHARGE: MOUNA DAMIAN MD Jun 14, 2025 12:51
[2025-06-14] MEDS ORDERED: LEVO-65 PO (12:53)
[2025-06-14] MEDS ORDERED: METR-159 PO (12:53)
--- NOTE | 2025-06-16 14:23 | CONSULTATION ---
DICTATING PHYSICIAN: Cr Cavanaugh MD REQUESTING PHYSICIAN: Dr. Kendrick Sousa. REASON FOR CONSULTATION: Abdominal pain and possible enteritis. HISTORY OF PRESENT ILLNESS: The patient is 45 years old, admitted on the of last month and she had an admitting diagnosis of urinary tract infection and she came in with recurrent abdominal pain and has been started on again antibiotics. She also had severe abdominal pain. CT scan was done, which showed inflammatory enteritis. The patient continued to be symptomatic with abdominal pain, not improving with antibiotics. Multiple CT scans are being done, which has shown inflammatory enteritis; although, no colitis. The patient has not had any diarrhea, hematemesis, or hematochezia. There is also a question of multiple abscesses that she has developed in the intra-abdominal area. These are nonspecific findings radiographically. The patient has been on antibiotics. She has been somewhat getting better with pain. Surgery has been consulted and no surgical procedure has been recommended and there was a recommendation of discharging the patient. PAST MEDICAL HISTORY: Hypertension. FAMILY HISTORY: Noncontributory. PERSONAL HISTORY: Noncontributory. REVIEW OF SYSTEMS: A 12-point review of systems essentially same as in history of present illness. PHYSICAL EXAM: On physical exam, she is alert, oriented, appears to be in no apparent distress. Vital signs are normal. Heart and lungs are normal. Abdomen is soft and nontender. No masses. No organomegaly. Bowel sounds are present. Extremities reveal no clubbing, cyanosis or edema. LABORATORY VALUES: Laboratory values were reviewed, which did not reveal significant leukocytosis. Hemoglobin and hematocrit was stable. Platelet count was normal. Chemistries were essentially unremarkable. The patient has been on empiric antibiotics. There has been no urine culture or blood culture growth. MRSA screen has been negative. IMPRESSION: A 45-year-old lady admitted with UTI, appears to have enteritis. The specific etiology is unclear. Possibly some dissemination of infection has happened. The patient, however, has improved with antibiotics. PLAN: The plan is to discharge her home tomorrow and I will see her for followup in my office. Discussed extensively with the hospitalist, Dr. Sousa. Cr Cavanaugh MD TID: [id number] RECEIPT: [id number] [facility] CENTERCrissy SARMIENTO
== END 2025-06-14 13:55 | disposition home or self-care (01) | DRG 871 ==
LOC: ER 02:51 → ED HOLD 09:21 → EDBEDREQTM 19:12 → ORTHO 4S 19:15
PROVIDERS: ADMIT Internal Medicine; ATTEND Internal Medicine
PROC: BW211ZZ Computerized Tomography (CT Scan) of Abdomen and Pelvis using Low Osmolar Contrast (ICD-10-PCS; principal; 2025-06-08)
PROC: BW211ZZ Computerized Tomography (CT Scan) of Abdomen and Pelvis using Low Osmolar Contrast (ICD-10-PCS; 2025-06-10)
PROC: BW211ZZ Computerized Tomography (CT Scan) of Abdomen and Pelvis using Low Osmolar Contrast (ICD-10-PCS; 2025-06-11)
DX: A41.9 Sepsis, unspecified organism (principal); K65.1 Peritoneal abscess; N39.0 Urinary tract infection, site not specified; E66.01 Morbid (severe) obesity due to excess calories; I10 Essential (primary) hypertension; Z68.42 Body mass index [BMI] 45.0-49.9, adult; K52.9 Noninfective gastroenteritis and colitis, unspecified; E87.6 Hypokalemia; Z87.891 Personal history of nicotine dependence
CPT/HCPCS: 36415; 71045; 74176; 74177; 76700; 76830; 76856; 80048; 80076; 81001; 83605; 83735; 84132; 84145; 85025; 86304; 87040; 87081; 87088; 93976; 99285; A4615; A6258; G0378; J0696; J1171; J2405; J2543; J3480; J3490; J7030; Q9963; Q9967